=== PATIENT | female | born 1995 | race African-American/Black ===

== ENCOUNTER 2019-07-25 09:17 | Outpatient (CLI) | payer BC, SELFPAY ==
--- NOTE | ~2019-07-25 | US_ITS ---
EXAMINATION: US pelvic complete w TV DATE: 07/25/2019 10:08 INDICATION: Ovarian cysts. Comparison:No prior studies for comparison. TECHNIQUE: Multiple transabdominal and endovaginal sonographic images of the pelvis performed. FINDINGS: The uterus measures 7.3 x 3.4 x 3.9 cm. The endometrial complex measures 3 mm. In the right adnexa there is a complex heterogeneous mass measuring 6.1 x 2.9 x 4.9 cm. No significan t internal vascularity. In the left adnexa there is a complex predominantly hypoechoic mass measuring 3.4 x 3.8 x 4.2 cm. There is no free fluid in the pelvis. IMPRESSION: 1. Complex solid bilateral adnexal masses. Considerations include dermoid, endometrioma, ovarian mass including cystadenoma/cystadenocarcinoma and ectopic with appropriate clinical history. Co nsider further evaluation with contrast-enhanced CT. Reviewed, dictated and finalized at location B. 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 Complex solid bilateral adnexal masses. Considerations include dermoid, endo metrioma, ovarian mass including cystadenoma/cystadenocarcinoma and ectopic pre gnancy with appropriate clinical history. Consider further evaluation with cont rast-enhanced CT.
== END 2019-07-25 09:18 | disposition home or self-care (01) ==
PROVIDERS: PCP Family Medicine; Visit Provider Family Medicine
DX: N83.209 Unspecified ovarian cyst, unspecified side (principal)
CPT/HCPCS: 76830; 76856

== ENCOUNTER 2019-07-30 15:06 | Outpatient (CLI) | payer BC, SELFPAY ==
--- NOTE | ~2019-07-30 | CT_ITS ---
EXAMINATION: CT pelvis w con EXAM DATE: 07/30/2019 15:35 INDICATION: Adnexal masses. TECHNIQUE: Spiral CT pelvis w con was performed following intravenous injection of 100 mL Omnipaque 3 50. Axial, coronal and sagittal images were reviewed. The dose-length product (DLP) for this examin ation was 306.85 mGy-cm. The exposure was tailored according to patient size (auto mA exposure contr ol), and iterative reconstruction (ASIR) was used as additional dose reduction technique. Correlation is made to pelvic ultrasound 07/25/2019. FINDINGS: There are bilateral ovarian dermoids, containing macroscopic fat, measuring 6.6 x 4.5 cm on the right and 5.4 x 4.3 cm on the left. The uterus is unremarkable. Normal appendix. Bladder is unre markable. No pelvic lymphadenopathy or inguinal hernias. There are no osseous abnormalities identifie d. IMPRESSION: Bilateral ovarian teratomas. Reviewed, dictated and finalized at location A.
== END 2019-07-30 15:07 | disposition home or self-care (01) ==
LOC: ANHIMG 15:08
PROVIDERS: Visit Provider Family Medicine
DX: R19.09 Other intra-abdominal and pelvic swelling, mass and lump (principal)
CPT/HCPCS: 72193; Q9967